=== PATIENT | female | born 1985 | race Caucasian/White ===

== ENCOUNTER 2016-09-21 15:54 | Emergency (ER) | payer OTHER | END 2016-09-21 16:20 | disposition admitted as inpatient to this hospital (09) | LOC: ER1 15:54 | DX: O99.89 Other specified diseases and conditions complicating pregnancy, childbirth and the puerperium (principal); S39.91XA Unspecified injury of abdomen, initial encounter; V49.40XA Driver injured in collision with unspecified motor vehicles in traffic accident, initial encounter; Z3A.34 34 weeks gestation of pregnancy | CPT/HCPCS: 99284 ==

== ENCOUNTER 2016-09-21 18:02 | Outpatient (CLI) | payer OTHER | END 2016-09-21 21:21 | disposition home or self-care (01) | LOC: GENOP 18:02 | DX: O9A.213 Injury, poisoning and certain other consequences of external causes complicating pregnancy, third trimester (principal); M54.9 Dorsalgia, unspecified; Z3A.34 34 weeks gestation of pregnancy; V89.2XXA Person injured in unspecified motor-vehicle accident, traffic, initial encounter | CPT/HCPCS: 59025 ==